=== PATIENT | female | born 1970 | race Caucasian/White ===

== ENCOUNTER 2016-12-09 12:25 | Emergency (ER) | payer OTHER ==
[2016-12-09 13:06] VITALS: BP 155/89; PULSE 118; RESP 18; TEMP 99
--- NOTE | 2016-12-09 13:37 | ED ---
General Adult HPI - General Chief complaint: Extremity Injury, Lower Stated complaint: Foot/injury pain Time Seen by Provider: 12/09/16 13:23 Source: patient, RN notes reviewed Mode of arrival: wheelchair Limitations: no limitations - History of Present Illness Initial comments: This is a 46-year-old female presents with right foot pain after falling this morning. Patient denies any loss of consciousness and patient denies hitting her head. Patient states she tripped and landed on her right foot. Patient now complains of pain to the top of her right foot but denies any numbness tingling or weakness. Patient states it hurts to walk but she has been able to ambulate. Patient states this happened around 8:30 this morning. Patient states she has taken Tylenol for the pain but this has not helped. Patient denies any recent fever, chills, shortness breath, chest pain, abdominal pain, nausea/vomiting/diarrhea, back pain, hematuria, headache, or visual changes, or any other complaints. - Related Data Home Medications Medication Instructions Recorded Confirmed Cyclobenzaprine HCl 10 mg PO HS 04/24/15 09/19/15 Dextroamphetamine/Amphetamine 30 mg PO BID 04/24/15 09/19/15 [Adderall] Diphenox-Atrop 2.5-0.025 mg 2 tab PO QID PRN 04/24/15 09/19/15 [Lomotil] Hydrocodone/Acetaminophen [Perry 1 tab PO Q6HR PRN 12/09/16 12/09/16 5-325] buPROPion SR [Wellbutrin Sr] 150 mg PO BID 12/09/16 12/09/16 Allergies Allergy/AdvReac Type Severity Reaction Status Date / Time atenolol [From Tenoretic] Allergy Rash/Hives Verified 12/09/16 13:43 chlorthalidone Allergy Rash/Hives Verified 12/09/16 13:43 [From Tenoretic] clarithromycin [From Biaxin] Allergy Rash/Hives Verified 12/09/16 13:43 NSAIDS (Non-Steroidal Allergy Unknown Verified 12/09/16 13:44 Anti-Inflamma tramadol HCl [From Ultram] Allergy Rash/Hives Verified 12/09/16 13:43 Review of Systems ROS Statement: Those systems with pertinent positive or pertinent negative responses have been documented in the HPI. ROS Other: All systems not noted in ROS Statement are negative. Past Medical History Past Medical History: No Reported History Additional Past Medical History / Comment(s): narcolepsy History of Any Multi-Drug Resistant Organisms: MRSA Date of last positivie culture/infection: 2012/MRSA MDRO Source:: eye Past Surgical History: Hysterectomy, Orthopedic Surgery Past Psychological History: No Psychological Hx Reported Smoking Status: Current every day smoker Past Alcohol Use History: Occasional Past Drug Use History: None Reported General Exam - General Exam Comments Initial Comments: General: The patient is awake and alert, in no distress, and does not appear acutely ill. Neck: The neck is supple, there is no tenderness or JVD. Cardiovascular: There is a regular rate and rhythm. No murmur, rub or gallop is appreciated. Respiratory: Lungs are clear to auscultation, respirations are non-labored, breath sounds are equal. No wheezes, stridor, rales, or rhonchi. Musculoskeletal: There is tenderness to palpation over the dorsal aspect of the right foot there is also tenderness to palpation of the first digit of the right foot. There is no ecchymosis, swelling or erythema. Patient has limited range of motion due to pain, strength is 5/5 and Sensation intact. Posterior tibial and dorsalis pedis pulses are 2+ bilaterally. Capillary refill is normal at less than 2 seconds. Neurological: A&O x 3. CN II-XII intact, There are no obvious motor or sensory deficits. Coordination appears grossly intact. Speech is normal. Skin: Skin is warm and dry and no rashes or lesions are noted. Psychiatric: Normal mood and affect. Limitations: no limitations Course Vital Signs 12/09/16 13:02 Temperature 99.0 F Pulse Rate 118 H Respiratory 18 Rate Blood Pressure 155/89 O2 Sat by Pulse 100 Oximetry Medical Decision Making - Medical Decision Making This is a 46-year-old female presents with right foot pain after a fall around 8 :30 this morning. On physical exam There is tenderness to palpation over the dorsal aspect of the right foot there is also tenderness to palpation of the first digit of the right foot. There is no ecchymosis, swelling or erythema. Patient has limited range of motion due to pain, strength is 5/5 and Sensation intact. Posterior tibial and dorsalis pedis pulses are 2+ bilaterally. Capillary refill is normal at less than 2 seconds. An x-ray of the right foot was done and reviewed showing: There is no acute fracture or dislocation in the right foot. Reported by Dr. Austin. Discussed the results with patient. I discussed foot sprain. I discussed rest, ice, elevate and use Marvin wrap compression. I discussed use of crutches until patient is able to bear weight on the right lower extremity without pain. Discussed range of motion exercises. Discussed hard soled shoes for support. Discussed Tylenol for pain. I discussed occult fracture. Discussed that patient should follow up with PCP in one to 2 days or return to the [facility] for any worsening symptoms or for any further concerns. Patient was receptive to this plan and patient will be discharged home. Disposition Clinical Impression: Foot sprain Disposition: HOME SELF-CARE Condition: Good Instructions: Foot Sprain (ED) Additional Instructions: Please rest, ice, elevate and use Marvin wrap for compression. Please use crutches as needed until able to bear weight without pain to the right lower extremity. Please wear supportive hard soled shoes. Please perform range of motion exercises periodically throughout the day. Please use Tylenol for pain. Please follow-up with family doctor in the next 2 days of symptoms have not improved. Please return to emergency room if the symptoms increase or worsen or for any other concerns. Referrals: Abhilash Domínguez MD [Primary Care Provider] - 1-2 days Time of Disposition: 13:54
--- NOTE | 2016-12-09 13:48 | XR ---
EXAMINATION TYPE: XR foot complete RT DATE OF EXAM: 12/09/2016 1:45 PM CLINICAL HISTORY: Foot pain after fall injury TECHNIQUE: Frontal, lateral, and oblique images of the right foot are obtained. COMPARISON: None FINDINGS: There is no acute fracture/dislocation evident in the right foot. Esteban's toe is noted. T he joint spaces in the right foot appear within normal limits. The overlying soft tissue appears unr emarkable. IMPRESSION: There is no acute fracture or dislocation in the right foot.
== END 2016-12-09 14:11 | disposition home or self-care (01) ==
LOC: EC 12:25
DX: S93.601A Unspecified sprain of right foot, initial encounter (principal); G47.419 Narcolepsy without cataplexy; F17.200 Nicotine dependence, unspecified, uncomplicated; Z79.899 Other long term (current) drug therapy; Z88.6 Allergy status to analgesic agent; Z88.1 Allergy status to other antibiotic agents; Z88.8 Allergy status to other drugs, medicaments and biological substances; W01.0XXA Fall on same level from slipping, tripping and stumbling without subsequent striking against object, initial encounter; Y92.009 Unspecified place in unspecified non-institutional (private) residence as the place of occurrence of the external cause
CPT/HCPCS: 99283